=== PATIENT | female | born 1955 | race Caucasian/White ===

== ENCOUNTER 2019-02-23 05:45 | Day surgery (SDC) | payer OTHER ==
[2019-02-23 06:14] LABS: ADD MAN DIFF? NO
[2019-02-23 06:29] LABS: WHITE BLOOD COUNT 6.5 10^3/ul (4.8-10.8)
[2019-02-23 06:29] LABS: BASOPHILS % 0.5 % (0.0-2.0); EOSINOPHILS # 0.3 10^3/ul (0.0-0.5); EOSINOPHILS % 5.3 % (0.0-7.0); HEMOGLOBIN 14.3 g/dl (12.0-16.0); LYMPHOCYTES # 1.7 10^3/ul (0.8-2.9); LYMPHOCYTES % 26.9 % (15.0-51.0); MEAN CORPUSCULAR HEMOGLOBIN 28.6 pg (29.0-33.0); MEAN PLATELET VOLUME 10.5 fl (7.4-10.4); MONOCYTE # 0.5 10^3/ul (0.3-0.9); MONOCYTES % 7.6 % (0.0-11.0); NEUTROPHIL # 3.9 10^3/ul (1.6-7.5); NEUTROPHILS % 59.5 % (39.0-77.0); PLATELET COUNT 165 10^3/UL (140-415); RED CELL DISTRIBUTION WIDTH 12.5 % (11.5-14.5)
[2019-02-23 06:44] LABS: INR 0.98; PROTIME 13.1 Sec (11.9-14.9)
[2019-02-23 06:45] LABS: PARTIAL THROMBOPLASTIN TIME 29.9 Sec (23.0-35.0)
[2019-02-23] MEDS ORDERED: SUCCINYLCHOLINE CHLORIDE 100 MG/5 ML SYG IV (06:47)
[2019-02-23] MEDS ORDERED: ROCURONIUM 50 MG INJ (06:47)
[2019-02-23] MEDS ORDERED: MIDAZOLAM 1 MG/ML 2 ML INJ (06:47)
[2019-02-23] MEDS ORDERED: PROPOFOL 20 ML (06:47)
[2019-02-23] MEDS ORDERED: hydrALAzine 20 MG INJ (06:48)
[2019-02-23] MEDS ORDERED: KETOROLAC 30 MG INJ (06:48)
[2019-02-23] MEDS ORDERED: ONDANSETRON 4 MG INJ (06:48)
[2019-02-23 06:49] LABS: ALANINE AMINOTRANSFERASE 92 IU/L (13-69); ALBUMIN 4.2 g/dl (3.3-4.9); ALBUMIN/GLOBULIN RATIO 1.13; ALKALINE PHOSPHATASE 93 IU/L (42-121); ANION GAP 14 (5-13); ASPARTATE AMINO TRANSFERASE 64 IU/L (15-46); BILIRUBIN,INDIRECT 0.4 mg/dl (0-1.1); BILIRUBIN,TOTAL 0.4 mg/dl (0.2-1.3); CALCIUM 9.7 mg/dl (8.4-10.2); CARBON DIOXIDE 30 mmol/L (21-31); CHLORIDE 99 mmol/L (97-110); CREATININE 0.88 mg/dl (0.44-1.00); Estimated GFR > 60 mL/min (>60); GLUCOSE 181 mg/dl (70-220); POTASSIUM 3.7 mmol/L (3.5-5.1); SODIUM 143 mmol/L (135-144); TOTAL PROTEIN 7.9 g/dl (6.1-8.1)
[2019-02-23 06:51] LABS: BLOOD UREA NITROGEN 22 mg/dl (7-20)
[2019-02-23] MEDS ORDERED: CEFAZOLIN 1 GM INJ (07:00)
[2019-02-23] MEDS: SOD CHLORIDE 0.9% 1,000 ML IV (07:00)
[2019-02-23] MEDS ORDERED: BUPIVACAINE 0.25% (MPF) 30 ML INJ (07:29)
[2019-02-23] MEDS: GENTAMICIN 80 MG INJ ×2 (07:32→11:14)
[2019-02-23] MEDS: POLYMYXIN/BACITRACIN 1L IRRIG ×2 (07:33→11:13)
[2019-02-23] MEDS ORDERED: morphine 2 MG INJ IV (08:00)
[2019-02-23] MEDS ORDERED: HYDROCODONE/APAP (5/325) TAB PO (08:00)
[2019-02-23] MEDS ORDERED: ACETAMINOPHEN 325 MG TAB PO (08:00)
[2019-02-23] MEDS: BUPIVACAINE 0.5%/EPI (SDV) 30 ML INJ (08:12)
[2019-02-23] MEDS ORDERED: FENTAnyl 50 MCG/ML VIAL ×2 (08:56→10:05)
[2019-02-23] MEDS ORDERED: OXYCODONE/ACETAMINOPHEN (5/325) TAB PO (09:00)
[2019-02-23] MEDS ORDERED: FENTAnyl 50 MCG/ML VIAL IV (09:00)
[2019-02-23] MEDS: BUPIVACAINE LIPOSOME/PF 266 MG/20 ML VIAL INFIL (11:20)
[2019-02-23] MEDS: SODIUM CL BACTERIOSTATIC 30 ML INJ (11:20)
[2019-02-23] MEDS ORDERED: hydrALAzine 20 MG INJ IV (12:30)
[2019-02-23] MEDS: ONDANSETRON 4 MG INJ IV ×2 (12:47→15:51)
[2019-02-23] MEDS: HYDROmorphONE 1 MG/5 ML IV SYRINGE IV (12:47)
[2019-02-23] MEDS: hydrALAzine 20 MG INJ IV ×4 (13:11→15:24)
== END 2019-02-23 16:14 | disposition home or self-care (01) ==
LOC: SDS 05:45
DX: T85.44XA Capsular contracture of breast implant, initial encounter (principal); Y83.8 Other surgical procedures as the cause of abnormal reaction of the patient, or of later complication, without mention of misadventure at the time of the procedure; E11.9 Type 2 diabetes mellitus without complications; E78.00 Pure hypercholesterolemia, unspecified
CPT/HCPCS: 19340; 71045; 80053; 82962; 85025; 85610; 85730; 88304